=== PATIENT | female | born 1980 | race Caucasian/White ===

== ENCOUNTER 2016-10-03 22:43 | Emergency (ER) | payer SELFPAY ==
[2016-10-03 23:38] LABS: APPEARANCE CLOUDY (CLEAR); COLOR YELLOW (YELLOW)
[2016-10-03 23:39] LABS: BILIRUBIN NEGATIVE (NEGATIVE); GLUCOSE NEGATIVE (NEGATIVE); KETONE NEGATIVE (NEGATIVE); LEUKOCYTE ESTERASE TRACE (NEGATIVE); NITRITE NEGATIVE (NEGATIVE); PROTEIN NEGATIVE (NEGATIVE); UROBILINOGEN NORMAL (NORMAL)
[2016-10-03 23:40] LABS: BACTERIA FEW /hpf (NONE SEEN); EPITHELIAL CELLS 0-5 /hpf (0-5); GRANULAR CAST RARE /lpf (NONE SEEN); RED CELLS - URINE 0-5 /hpf (0-5); WHITE CELLS - URINE 0-5 /hpf (0-5)
[2016-10-04 01:02] LABS: HCG SERUM NEGATIVE (NEGATIVE)
== END 2016-10-04 00:54 | disposition home or self-care (01) ==
LOC: D.ER 22:43
PROVIDERS: Family Medicine; Physician Assistant Medical
DX: S16.1XXA Strain of muscle, fascia and tendon at neck level, initial encounter (principal); W19.XXXA Unspecified fall, initial encounter; Y93.89 Activity, other specified; Y92.89 Other specified places as the place of occurrence of the external cause; F17.200 Nicotine dependence, unspecified, uncomplicated

== ENCOUNTER 2017-01-18 10:29 | Emergency (ER) | payer SELFPAY ==
[2017-01-18 11:05] LABS: APPEARANCE HAZY (CLEAR); BILIRUBIN NEGATIVE (NEGATIVE); COLOR YELLOW (YELLOW); GLUCOSE NEGATIVE (NEGATIVE); KETONE NEGATIVE (NEGATIVE); NITRITE NEGATIVE (NEGATIVE); PROTEIN NEGATIVE (NEGATIVE); UROBILINOGEN NORMAL (NORMAL)
[2017-01-18 11:09] LABS: AMORPHOUS SEDIMENT >1+ /lpf (NONE SEEN); BACTERIA MODERATE /hpf (NONE SEEN); EPITHELIAL CELLS 0-5 /hpf (0-5); MUCUS <1+ /lpf (NONE SEEN); RED CELLS - URINE OCC /hpf (0-5); WHITE CELLS - URINE RARE /hpf (0-5)
[2017-01-18 11:26] LABS: ALBUMIN 3.5 g/dL (3.4-5.0); ALKALINE PHOSPHATASE 69 U/L (46-116); ALT (SGPT) 39 U/L (10-68); BILIRUBIN - TOTAL 0.37 mg/dL (0.2-1.3); CALC OSMOLALITY 276 mosm/kg (275-300); CALCIUM 9.4 mg/dL (8.5-10.1); CARBON DIOXIDE 26.4 mmol/L (21.0-32.0); CHLORIDE - SERUM 104 mmol/L (98-107); CREATININE - SERUM 0.6 mg/dL (0.6-1.3); GLUCOSE 115 mg/dL (74-106); MAGNESIUM - SERUM 2.1 mg/dL (1.8-2.4); POTASSIUM - SERUM 3.9 mmol/L (3.5-5.1); PROTEIN - SERUM 7.5 g/dL (6.4-8.2); SODIUM 139 mmol/L (136-145); UREA NITROGEN 7 mg/dL (7-18); eGFR NON AFRICAN AMERICAN > 90 mL/min (90-120)
[2017-01-18 11:32] LABS: UDS - AMPHET NEGATIVE QUAL (NEGATIVE); UDS - BARB NEGATIVE QUAL (NEGATIVE); UDS - BENZO NEGATIVE QUAL (NEGATIVE); UDS - COCAINE NEGATIVE QUAL (NEGATIVE); UDS - OPIATE NEGATIVE QUAL (NEGATIVE); UDS - PCP NEGATIVE QUAL (NEGATIVE); UDS - THC NEGATIVE QUAL (NEGATIVE)
[2017-01-18 11:46] LABS: BASOPHILS 0.2 % (0-2); EOSINOPHILS 1.2 % (0-7); HEMATOCRIT 39.2 % (36.0-48.0); HEMOGLOBIN 13.6 g/dL (12-16); IMMATURE GRANULOCYTES 0.2 % (0-5); LYMPHOCYTES 27.2 % (15-50); MCH 29.1 pg (26.0-34.0); MCHC 34.7 g/dL (31.0-37.0); MCV 83.8 fL (80.0-100.0); MEAN PLATELET VOLUME 9.7 fL (7.4-10.4); MONOCYTES 8.5 % (2-11); NEUTROPHILS 62.7 % (40-80); PLATELET COUNT 243 10x3/uL (130-400); RBC 4.68 10x6/uL (4.00-5.40); RDW 13.4 % (11.5-14.5); WBC 9.3 10x3/uL (4.8-10.8)
== END 2017-01-18 14:10 | disposition home or self-care (01) ==
LOC: D.ER 10:29
PROVIDERS: Family Medicine
DX: R56.9 Unspecified convulsions (principal)

== ENCOUNTER → 2018-07-31 07:59 | Outpatient (CLI) | payer MEDICAID ==
--- NOTE | ~2018-07-31 | EC ---
PATIENT:SAMUEL TANG DATE OF SERVICE: 07/31/18 SEX: F MEDICAL RECORD: [id number] DATE OF : [birth year] [facility] AGE OF PATIENT: 37 ADMISSION DATE: 07/31/18 REFERRING PHYSICIAN: INTERPRETING PHYSICIAN: KIRAN REED MD ECHOCARDIOGRAM REPORT ECHO CHARGES 4 ECHO COMPLETE Date: 07/31/18 CLINICAL DIAGNOSIS: TACHYCARDIA/ANGINA/HEBERT/ PALPITATIONS/MURMUR/ABNORMAL EKG/HTN ECHOCARDIOGRAPHIC MEASUREMENTS (adult normal given) AC root (d.<3.7cm) 2.4 cm LV Septum d (<1.2 cm> 1.2 cm Valve Excursion 1.6 cm LV Septum (systole) 1.7 cm Left Atria (s.<4.0cm> 4.1 cm LVPW d(<1.2cm) 1.2 cm RV (d.<2.3cm) 2.6 cm LVPW (sytole) 2.0 cm LV diastole(<5.6CM) 5.0 cm MV E-F(>70mm/sec) cm LV systole 2.7 cm LVOT Diameter 1.7 cm MV exc.(>10mm) cm Est.ejection fraction (50-75%) % DOPPLER: LVIT cm/sec A 61.0 cm/sec E 100 cm/sec LA cm/sec RVSP 24.0 mmHg LVOT 104 cm/sec AOP1/2T m/s Asc. Ao 143 cm/sec RVOT 64.0 cm/sec RA cm/sec PA 102 cm/sec AV Gradient Peak 8.2 mmHg AV Mean 3.9 mmHg AV Area 1.8 cm MV Gradient Peak 5.1 mmHg MV Mean 1.6 mmHg MV Area cm COMMENTS: OP - HC Ground Wirer: 1 NOHEMI ANJU Vacuum Drier Operator: 3 Dr. Smith TAPE# PACS Pericardial Effusion N DATE OF SERVICE: 07/31/2018 Adequate 2-D, color-flow and spectral Doppler, and M-mode. No LVH. LV internal dimensions are normal. Wall motion is normal. EF is greater than or equal to 55%. Aortic valve is tricuspid. No evidence of stenosis by Doppler interrogation. Left atrium is at upper limits of normal at 4.1 cm. Mitral valve shows no prolapse. Trace MR. Right side is grossly normal. Trace TR. ECHOCARDIOGRAM REPORT [id number] SAMUEL TANG TRANSINT:[id number] Voice Confirmation ID: [id number] DOCUMENT ID: [id number] KIRAN REED MD CC: [id number] DICTATION DATE: 08/01/18 1358 RECEPTIONIST/TELEPHONE OPERATOR: 08/01/18 1536 DEP CLI 07/31/18 [place] [id number] [place] [id number]
--- NOTE | 2018-08-06 14:37 | ST ---
PATIENT:SAMUEL TANG MEDICAL RECORD: [id number] SEX: F LOCATION:[facility] ORDER #: ADMISSION DATE: 07/31/18 AGE OF PATIENT: 37 REFERRING PHYSICIAN: INTERPRETING PHYSICIAN: CARLOS NOVAK MD DATE OF SERVICE: 07/31/2018 Nuclear Stress Test INDICATIONS: Angina, abnormal ECG, shortness of breath, and palpitations. She was exercised on standard Lexiscan protocol with 33 mCi of sestamibi injected at peak stress, 11 mCi used previously for rest images. FINDINGS: Gated SPECT reveals a preserved ejection fraction at 65% with good wall motioning and thickening and brightening throughout all segments. SPECT IMAGING: Cardiolite was used as myocardial perfusion agent. There is moderate reversibility throughout the anterior and apical segments. This includes the basal, mid, apical, and anterior segments as well as the apex itself. The degree of reversibility is moderate. The amount of myocardium involved is moderate to large. OVERALL IMPRESSION: 1. This is an abnormal nuclear stress test. Reversible ischemia anteriorly and apically. 2. Gated SPECT reveals preserved ejection fraction at 65%. In this patient with ongoing symptomatology, the current scan does suggest presence of hemodynamically significant coronary artery disease. We will proceed with coronary angiography as followup study. TRANSINT:[id number] Voice Confirmation ID: [id number] DOCUMENT ID: [id number] CARLOS NOVAK MD at 1437 CC: [id number] DICTATION DATE: 08/02/18 1324 FLAT DRIER: 08/03/18 0208 DEP CLI 07/31/18 [place] [id number]
== END | disposition home or self-care (01) ==
LOC: D.HCCARDIO 07:59
PROVIDERS: ATTEND Internal Medicine Interventional Cardiology
DX: I20.9 Angina pectoris, unspecified (principal)

== ENCOUNTER 2018-08-20 11:15 | Emergency (ER) | payer MEDICAID ==
[~2018-08-20] VITALS: Ht 160 cm; Wt 80.9 kg
[2018-08-20 11:16] VITALS: BP 140/104; Ht 160 cm; Wt 80.9 kg
[2018-08-20] MEDS ORDERED: LIPITOR10 MG PO (11:18)
[2018-08-20] MEDS ORDERED: TENORMIN25 MG PO (11:19)
[2018-08-20 11:48] LABS: BASOPHILS 0.2 % (0-2); EOSINOPHILS 0.1 % (0-7); HEMATOCRIT 40.2 % (36.0-48.0); HEMOGLOBIN 14.4 g/dL (12-16); IMMATURE GRANULOCYTES 0.3 % (0-5); MCHC 35.8 g/dL (31.0-37.0); MCV 80.9 fL (80.0-100.0); MEAN PLATELET VOLUME 9.3 fL (7.4-10.4); MONOCYTES 5.5 % (2-11); NEUTROPHILS 70.9 % (40-80); PLATELET COUNT 265 10x3/uL (130-400); RBC 4.97 10x6/uL (4.00-5.40); RDW 13.4 % (11.5-14.5); WBC 11.8 10x3/uL (4.8-10.8)
[2018-08-20 11:57] LABS: HCG SERUM NEGATIVE (NEGATIVE)
[2018-08-20 12:05] LABS: ALBUMIN 4.4 g/dL (3.4-5.0); ALKALINE PHOSPHATASE 82 U/L (46-116); ALT (SGPT) 58 U/L (10-68); BILIRUBIN - TOTAL 0.87 mg/dL (0.2-1.3); CALC OSMOLALITY 280 mosm/kg (275-300); CALCIUM 9.9 mg/dL (8.5-10.1); CARBON DIOXIDE 25.3 mmol/L (21.0-32.0); CHLORIDE - SERUM 104 mmol/L (98-107); CREATININE - SERUM 0.6 mg/dL (0.6-1.3); GLUCOSE 121 mg/dL (74-106); POTASSIUM - SERUM 3.9 mmol/L (3.5-5.1); PROTEIN - SERUM 8.7 g/dL (6.4-8.2); SODIUM 141 mmol/L (136-145); UREA NITROGEN 9 mg/dL (7-18); eGFR NON AFRICAN AMERICAN > 90 mL/min (90-120)
[2018-08-20 12:23] LABS: INR 1.02 (0.85-1.17); PROTIME 12.9 SECONDS (11.6-15.0)
[2018-08-20 12:24] LABS: APTT 32.4 SECONDS (22.8-39.4)
[2018-08-20 12:26] LABS: AMYLASE - SERUM 39 U/L (25-115); CKMB 3.3 U/L (0.0-3.6); CREATINE KINASE 276 UL (21-215); TROPONIN-I < 0.017 ng/mL (0.000-0.060)
[2018-08-20 12:27] LABS: LIPASE 93 U/L (73-393)
[2018-08-20] MEDS ORDERED: LEVSIN/ANASP0.125 MG PO (15:16)
[2018-08-20] MEDS ORDERED: ZANTAC300 MG PO (15:16)
[2018-08-21] MEDS ORDERED: RANITIDINE HCL150 M1 PO (11:41)
[2018-08-21] MEDS ORDERED: CLARITIN 10 MG10 MG PO (11:43)
== END 2018-08-20 16:00 | disposition home or self-care (01) ==
LOC: D.ER 11:15
PROVIDERS: Family Medicine
DX: R10.9 Unspecified abdominal pain (principal); R07.9 Chest pain, unspecified; R11.2 Nausea with vomiting, unspecified

== ENCOUNTER 2018-08-21 11:24 | Outpatient (CLI) | payer MEDICAID ==
[~2018-08-21] VITALS: Ht 160 cm; Wt 80.5 kg
--- NOTE | ~2018-08-21 | HEMODYNAMI ---
PATIENT:SAMUEL TANG MEDICAL RECORD: [id number] : 84 LOCATION:[facility] ADMISSION DATE: 08/21/18 Generatedon:08/21/201815:34 Patient name: SAMUEL TANG Patient #: [id number] SSN: : 1980 Date of study: 08/21/2018 Page: Of Hemodynamic Procedure Report Patient Data Patient Demographics Procedure consent was obtained First Name: SAMUEL Gender: Female Last Name: CLYDE : 1980 Patient #: [id number] Age: 37 year(s) Race: Unknown Additional ID: [id number] Contact details [address]: [address] [place] [address] way [address] State: [place] City: [place] Zip code: [address] Admission Admission Data Admission Date: 08/21/2018 Admission Time: 11:24 Lab Results Lab Result Date: 08/21/2018 Lab Result Time: 0:00 Biochemistry Name Units Result Min Max BUN mg/dl 11 --(-*--)-- 7 18 Creatinine mg/dl 0.7 --(*---)-- 0.6 1.3 CBC Name Units Result Min Max Hemoglobin g/dl 13.8 --(*---)-- 13.5 17.5 Procedure Procedure Types Cath Procedure Diagnostic Procedure [facility] w/Coronaries Procedure Description Procedure Date Procedure Date: 08/21/2018 Procedure Start Time: 15:11 Procedure End Time: 15:32 Procedure Staff Name Function Brennan Wilson MD Performing Physician Ko Moore RT Monitor Benita Luna RN Nurse Anam Saldana RT Scrub Procedure Data Cath Procedure Fluoroscopy Diagnostic fluoroscopy Total fluoroscopy Time: 6.7 time: 6.7 min min Diagnostic fluoroscopy Total fluoroscopy dose: dose: 1022 mGy 1022 mGy Contrast Material Contrast Material Type Amount (ml) Isovue 370 69 Entry Location Entry Primary Successful Side Size Upsize Upsize Entry Closure [place] ccessful Closure Location (Fr) 1 (Fr) 2 (Fr) Remarks Device Remarks Radial Right 6 Fr Mechanical artery Short Compression Estimated blood loss: 10 ml Diagnostic catheters Device Type Used For End Catheter Placement DIAGNOSTIC [place] 110cm 5 Procedure Fr catheter (205010) DIAGNOSTIC AR MOD 5Fr Procedure Catheter (100123Z) DIAGNOSTIC Marni 5Fr Procedure catheter (147407) DIAGNOSTIC JL 3.5 5Fr Procedure catheter ([id number]) DIAGNOSTIC JB3 4Fr Procedure catheter (867723) Procedure Complications No complications Procedure Medications Medication Administration Route Dosage 0.9% NaCl I.V. 100 ml/hr Oxygen etCO2 Nasal cannula 2 l/min Lidocaine 2% added to field 20 Heparin Flush Bag added to field 2 bags (1000units/500ml NS) Radial Cocktail added to field 1 syringe (Verapamil 2mg/Nitro 400mcg/Heparin 1500units) Versed I.V. 2 mg Fentanyl I.V. 50 mcg Fentanyl I.V. 50 mcg Lopressor I.V. 5 mg Hemodynamics Rest Heart Rate: 107 (bpm) Pressure Samples Time Site Value (mmHg) Purpose Heart Use Rate(bpm) 15:17 LV 132/46,17 Snapshot 147 15:17 AO 110/86(98) Snapshot 132 Gradients Valve Time Site Site Mean SEP/DFP Peak To Heart Use 1 2 (mmHg) (sec/min) Peak Rate (mmHg) (bpm) Aortic 15:17 LV AO 139 Snapshots Pre Cath Intra NCS Post Cath Vital Signs Time Heart Resp SPO2 etCO2 NIBP (mmHg) Rhythm Pain Sedation Rate (ipm) (%) (mmHg) Status Level (bpm) 15:03:43 125 13 97 35.6 132/80(108) ST 0 (11) 10(A) , No pain 15:07:41 120 17 97 37.1 138/86(101) ST 0 (11) 10(A) , No pain 15:11:42 122 16 97 36.4 122/84(101) ST 0 (11) 10(A) , No pain 15:15:52 131 20 98 37.1 123/66(98) ST 0 (11) 10(A) , No pain 15:19:54 124 19 97 38.7 126/71(94) ST 0 (11) 10(A) , No pain 15:23:56 109 24 97 38.6 132/78(97) ST 0 (11) 10(A) , No pain 15:28:01 102 18 97 38.6 126/79(94) ST 0 (11) 10(A) , No pain 15:32:01 101 21 100 37.1 134/84(105) ST 0 (11) 10(A) , No pain Medications Time Medication Route Dose Verified Delivered Reason Notes E ffectiveness by by 15:06:08 0.9% NaCl I.V. 100 Brennan Benita used for ml/hr Savery Jeremy procedure MD MICHAEL 15:06:14 Oxygen etCO2 2 l/min Brennan Benita used for Nasal Savery Jeremy procedure cannula MD MICHAEL 15:06:19 Lidocaine 2% added 20ml Brennan Amin for local to vial [facility] anesthetic field MD ORDONEZ 15:06:24 Heparin Flush added 2 bags Brennan Amin used for Bag to [facility] procedure (1000units/500ml field MD ORDONEZ NS) 15:06:31 Radial Cocktail added 1 Brennan Amin used for (Verapamil to syringe [facility] procedure 2mg/Nitro field MD ORDONEZ 400mcg/Heparin 1500units) 15:10:52 Fentanyl I.V. 50 mcg Brennan Sutherlandyla for KatieMaximino Luna sedation MD MICHAEL 15:11:41 Versed I.V. 2 mg Brennan Benita for Savery Jeremy sedation MD MICHAEL 15:19:35 Fentanyl I.V. 50 mcg Brennan Benita for Savery Jeremy sedation MD MICHAEL 15:19:40 Lopressor I.V. 5 mg Brennan Benita Per Savery Jeremy physician MD MICHAELdebeaker Log Time Note 14:40:45 Benita Luna RN sent for patient. Start room use. 14:51:46 Time tracking: Regular hours (M-F 7:00 - 5:00) 14:51:50 Plan of Care:Hemodynamics will remain stable., Cardiac rhythm will remain stable., Comfort level will be maintained., Respiratory function will remain adequate., Patient/ family verbilizes understanding of procedure., Procedure tolerated without complication., Recovers from procedure without complications.. 14:53:30 Patient received from Pre/Post Procedure Room to [facility] 2 Alert and oriented. Tansferred to table in Supine position. 14:53:32 Warm blankets applied, and brendan hugger turned on for patient comfort. 14:53:32 Correct patient and procedure confirmed by team. 14:53:33 Signed procedure consent form obtained from patient. 14:53:34 ECG and BP/O2 sat monitors applied to patient. 14:57:20 Lab Result : BUN 11 mg/dl 14:57:20 Lab Result : Hemoglobin 13.8 g/dl 14:57:20 Lab Result : Creatinine 0.7 mg/dl 15:02:51 Vital chart was started 15:06:08 0.9% NaCl 100 ml/hr I.V. was administered by Benita Luna RN; used for procedure; 15:06:14 Oxygen 2 l/min etCO2 Nasal cannula was administered by Benita Luna RN; used for procedure; 15:06:19 Lidocaine 2% 20ml vial added to field was administered by Brennan Wilson MD; for local anesthetic; 15:06:24 Heparin Flush Bag (1000units/500ml NS) 2 bags added to field was administered by Brennan Wilson MD; used for procedure; 15:06:29 Baseline sample Acquired. 15:06:31 Radial Cocktail (Verapamil 2mg/Nitro 400mcg/Heparin 1500units) 1 syringe added to field was administered by Brennan Wilson MD; used for procedure; 15:06:33 Rhythm: sinus tachycardia 15:06:34 Full Disclosure recording started 15:06:44 H&P Date Dictated: 07/31/2018 Within 30 days and on chart., H&P Addendum completed by physician on day of procedure. (MUST COMPLETE FOR ALL OUTPATIENTS). 15:06:45 Pre-procedure instructions explained to patient. 15:06:46 Pre-op teaching completed and patient verbalized understanding. 15:06:47 Family in patients room. 15:06:48 Patient NPO since Midnight. 15:06:50 Is the patient allergic to Iodine/contrast media? No. 15:06:52 Is the patient allergic to Iodine/contrast media? No. 15:06:55 Is patient on blood thinner?No 15:07:02 Patient diabetic? No. 15:09:00 HCG/Urine : completed and on chart, negative 15:09:03 Previous problem with sedation/anesthesia? No ? 15:09:04 Snore? Yes 15:09:05 Sleep apnea? No 15:09:06 Deviated septum? No 15:09:07 Opens mouth fully? Yes 15:09:08 Sticks out tongue? Yes 15:09:09 Airway obstruction? No ? 15:09:13 Dentures? Yes out 15:09:17 Pre procedure: right dorsailis pedis pulse 1+ Palpable, but thready & weak; easily obliterated 15:09:19 Modified Satish's test Ulnar < 7 seconds 15:09:21 Patient pain scale 0/10 ?. 15:09:27 IV patent on arrival in left forearm with 0.9% NaCl at [facility]. 15:09:28 Lab results completed and on chart. 15:09:31 Right Radial & Right Groin area was prepped with chlora-prep and draped in sterile fashion 15:09:32 Alarms reviewed by R. N. 15:09:33 Sharps counted by scrub and verified by R.N. 15:09:37 Use device set Radial Dx or PCI 15:09:39 Tegaderm 4 x 4 (1626W) opened to sterile field. 15:09:39 ACIST Manifold (71669) opened to sterile field. 15:09:40 ACIST Hand Control (38086) opened to sterile field. 15:09:41 ACIST Syringe (30620) opened to sterile field. 15:09:41 Medline Cath Pack ([id number]) opened to sterile field. 15:09:42 Bag Decanter (2002S) opened to sterile field. 15:09:42 DIAGNOSTIC WIRE .035 260cm J wire (042636) opened to sterile field. 15:09:42 MBrace Wrist Support (613640321) opened to sterile field. 15:09:44 SHEATH 6FR Slender (77-1060) opened to sterile field. 15:: --------ALL STOP TIME OUT------ 15:: Final Timeout: patient, procedure, and site verified with staff and physician. All members of the team are in agreement. 15:10:13 Right Radial & Right Groin site verified by team. 15:10:17 Maximum allowable Isovue 370 dose 300ml. Physician notified. (300ml for normal creatinines. For patients with creatinine of 1.7 or higher multiply weight(kg) x 5 divided by creatinine.) 15:10:20 Fire Safety Assessment: A--An alcohol-based skin anteseptic being used preoperatively., C--Open oxygen or nitrous oxide is being used., D--An ESU, laser, or fiber-optic light is being used. 15:10:23 Physical assessment completed. ASA score P 2 - A patient with mild systemic disease as per Brennan Wilson MD. 15:10:25 Sedation plan: IV Moderate Sedation Medication:Versed, Fentanyl 15:10:52 Fentanyl 50 mcg I.V. was administered by Benita Luna RN; for sedation; 15:11:12 Procedure started. 15:11:16 Local anesthetic to right radial artery with Lidocaine 2% by Brennan Wilosn MD.INITIAL ACCESS ONLY 15:11:41 Versed 2 mg I.V. was administered by Benita Luna RN; for sedation; 15:13:44 A 6 Fr Short sheath was inserted into the Right Radial artery 15:13:51 A DIAGNOSTIC [place] 110cm 5 Fr catheter (950835) was advanced over the wire and used for Procedure. 15:17:19 LV angiography performed. 15:17:20 LV gram done using CAVAZOS 15:17:26 EF : 55 % 15:17:33 LV hemodynamics recorded. 15:17:36 Injector settings: Ml/sec: 7, Volume: 15, 15:19:17 Catheter removed. unable to cannulate vessel. 15:19:35 Fentanyl 50 mcg I.V. was administered by Benita Luna RN; for sedation; 15:19:40 Lopressor 5 mg I.V. was administered by Benita Luna RN; Per physician; 15:20:31 A DIAGNOSTIC AR MOD 5Fr Catheter (431870U) was advanced over the wire and used for Procedure. 15:21:22 RCA angiography performed. 15:21:42 Catheter exchanged over wire. 15:21:48 A DIAGNOSTIC Marni 5Fr catheter (080971) was advanced over the wire and used for Procedure. 15:23:48 Catheter removed. unable to cannulate vessel. 15:24:30 A DIAGNOSTIC JL 3.5 5Fr catheter (531336U) was advanced over the wire and used for Procedure. 15:26:48 Catheter removed. unable to cannulate vessel. 15:26:58 A DIAGNOSTIC JB3 4Fr catheter (694829) was advanced over the wire and used for Procedure. 15:29:39 RCA angiography performed. 15:30:04 Catheter removed. 15:30:05 TR BAND Standard ([id number]) opened to sterile field. 15:30:17 Sheath removed intact; hemostasis achieved with Mechanical Compression to the Right Radial artery. 15:30:30 Procedure ended.(Physican Out) 15:30:53 Fluoroscopy time 06.70 minutes. 15:30:59 Flurop Dose total: 1022 15:30:59 Fluoroscopy dose: 1022 mGy 15:31:04 Contrast amount:Isovue 370 69ml. 15:31:05 Sharps counted by scrub and verified by R.N. 15:31:07 Insertion/operative site no bleeding no hematoma. 15:31:10 TR band inflated with 12cc of air. 15:31:12 Post Procedure Pulses reassessed and unchanged 15:31:15 Post-procedure physical assessment completed. ASA score P 2 - A patient with mild systemic disease as per Brennan Wilson MD. 15:31:23 Post procedure rhythm: sinus tachycardia 15:31:25 Estimated blood loss: 10 ml 15:31:27 Post procedure instruction explained to patient.Patient verbalizes understanding. 15:31:27 Patient needs reinforcement of post procedure teaching. 15:31:36 Procedure and supply charges have been captured, reviewed, submitted and are correct. 15:31:39 Procedure Complication : No complications 15:32:46 Vital chart was stopped 15:32:48 See physician's report for complete and final results. 15:32:50 Report given to Pre/Post Procedure Room. 15:32:53 Patient transfered to Pre/Post Procedure Room with Stretcher. 15:32:56 Procedure ended. 15:32:56 Full Disclosure recording stopped 15:34:38 End room use (Document Last) Device Usage Item Name Manufacture Quantity Catalog Hospital Part Current Minimal Lot# / Number Charge Number Stock Stock Serial# Code Tegaderm 4 3M 1 1626W [id number] 661457 921895 5 x 4 (1626W) ACIST Acist 1 83408 815700 400803 958913 5 Manifold Medical (40727) Systems Inc ACIST Hand Acist 1 71981 380098 343990 095472 5 Control Medical (45599) Systems Inc ACIST Acist 1 28048 654910 923204 659939 20 Syringe Medical (68957) Systems Inc Medline Medline 1 [id number] 374037 39141 655176 5 Cath Pack ([id number]) Bag Microtek 1 2001S 164796 86562 869406 5 Decanter Medical Inc. () DIAGNOSTIC [place] 1 193367 712216 335129 931033 30 WIRE .035 260cm J wire (011154) MBrace Advanced 1 140-0250-00 961049 00395 540634 5 Wrist Vascular Support Dynamics ([id number]) SHEATH 6FR Terumo 1 [id number] 342513 862099 485690 5 Slender (80-1060) DIAGNOSTIC Terumo 1 40-5013 169784 082794 657125 5 [place] 110cm 5 Fr catheter (099366) DIAGNOSTIC Cardinal 1 446234O 451255 813605 726510 15 AR MOD 5Fr Health Catheter (344658Q) DIAGNOSTIC Terumo 1 40-5022 546347 230060 048897 5 Marni 5Fr catheter (362958) DIAGNOSTIC Cardinal 1 [id number] 928825 837888 608933 5 JL 3.5 5Fr Health catheter (045537E) DIAGNOSTIC Cardinal 1 532-438 372818 470312 570023 5 JB3 4Fr Health catheter (012161) TR BAND Terumo 1 [id number] 399432 254439 971703 40 Standard ([id number]) Signature Audit [place] Stage Time Signature Unsigned Intra-Procedure 08/21/2018 Ko Moore 3:34:55 PM RT(R) Signatures Monitor : Ko Moore RT Signature : Date : Time : [facility] [address] [place] [address]
[~2018-08-21 11:24] MED LIST: LEVSIN/ANASP0.125 MG PO; LIPITOR10 MG PO; TENORMIN25 MG PO; ZANTAC300 MG PO
[2018-08-21] MEDS ORDERED: RANITIDINE HCL150 M1 PO (11:41)
[2018-08-21] MEDS ORDERED: CLARITIN 10 MG10 MG PO (11:43)
[2018-08-21 12:00] VITALS: BP 116/89; Ht 160 cm; Wt 80.5 kg
[2018-08-21 12:36] LABS: CALC OSMOLALITY 287 mosm/kg (275-300); CALCIUM 9.3 mg/dL (8.5-10.1); CARBON DIOXIDE 26.8 mmol/L (21.0-32.0); CHLORIDE - SERUM 107 mmol/L (98-107); CREATININE - SERUM 0.7 mg/dL (0.6-1.3); GLUCOSE 103 mg/dL (74-106); POTASSIUM - SERUM 3.6 mmol/L (3.5-5.1); SODIUM 145 mmol/L (136-145); UREA NITROGEN 11 mg/dL (7-18); eGFR NON AFRICAN AMERICAN > 90 mL/min (90-120)
[2018-08-21 12:41] LABS: BASOPHILS 0.2 % (0-2); HEMATOCRIT 39.5 % (36.0-48.0); HEMOGLOBIN 13.8 g/dL (12-16); IMMATURE GRANULOCYTES 0.3 % (0-5); LYMPHOCYTES 26.9 % (15-50); MCH 28.6 pg (26.0-34.0); MCHC 34.9 g/dL (31.0-37.0); MEAN PLATELET VOLUME 9.4 fL (7.4-10.4); MONOCYTES 7.9 % (2-11); NEUTROPHILS 63.7 % (40-80); PLATELET COUNT 246 10x3/uL (130-400); RBC 4.82 10x6/uL (4.00-5.40); RDW 13.8 % (11.5-14.5); WBC 9.4 10x3/uL (4.8-10.8)
--- NOTE | 2018-08-21 13:47 | NUR ---
PT ARRIVED BY STRETCHER. PLACED ON MONITORS. PT IN SINUS RHYTHM RATE 61. DENIES PAIN/NAUSEA AT THIS TIME.
[2018-08-21 13:48] LABS: HCG SERUM NEGATIVE (NEGATIVE)
--- NOTE | 2018-08-21 14:02 | NUR ---
PT RESTING COMFORTABLY. VSS. PT IN SR. RATE 63. NO NEEDS AT THIS TIME.
--- NOTE | 2018-08-21 14:30 | NUR ---
PT RESTING COMFORTABLY. STILL IN SINUS RHYTHM. LEFT ARM PIV D/C'D WITH CATH TIP INTACT. TOLERATED WELL. PT INSTRUCTED TO GET UP AND DRESSED.
--- NOTE | 2018-08-21 14:40 | NUR ---
DISCUSSED DISCHARGE INSTRUCTIONS WITH PT AND PT'S FAMILY. THEY VOICED UNDERSTANDING.
--- NOTE | 2018-08-21 14:45 | NUR ---
PT TAKEN OUT TO VEHILCE BY WHEELCHAIR. NO S/S OF DISTRESS NOTED. ALL BELONGINGS AND PAPERWORK IN HAND.
--- NOTE | 2018-08-21 15:55 | NUR ---
2L NC, NO RESP DISTRESS. RIGHT WRIST TR BAND CDI, NO BLEEDING OR HEMAOTMA NOTED. NO C/O PAIN OR NAUSEA. VSS. FAMILY AT BEDSIDE, CALL LIGHT WITHIN REACH.
--- NOTE | 2018-08-21 16:40 | NUR ---
3CC OF AIR REMOVED FROM TR BAND WITH NO BLEEDING NOTED. SIPPING ON DRINK AND EATING SANDWICH WITH NO C/O NAUSEA. VSS. WILL CONTINUE TO MONITOR.
--- NOTE | 2018-08-21 16:55 | NUR ---
3CC OF AIR REMOVED FROM TR BAND WITH NO BLEEDING NOTED.
--- NOTE | 2018-08-21 17:10 | NUR ---
LEFT PIV D/C'D WITH CATHETER INTACT, BAND AID TO SITE. UP TO BEDSIDE TO GET DRESSED. AMBULATED TO RESTROOM.
--- NOTE | 2018-08-21 17:20 | NUR ---
REMAINING AIR REMOVED FROM TR BAND WITH NO BLEEDING NOTED. DRESSING PLACED TO SITE. DISCHARGE INSTRUCTIONS ALONG WITH ZYBETTA PRESCRIPTION GIVEN TO PT AND FAMILY, BOTH VERBALIZED UNDERSTANDING.
--- NOTE | 2018-08-21 17:35 | NUR ---
TAKEN OUT VIA WHEELCHAIR BY CATH WEB DEVELOPMENT INSTRUCTOR. LEFT FACILITY WITH FAMILY AND ALL PERSONAL BELONGINGS.
--- NOTE | 2018-08-23 09:47 | OP ---
PATIENT NAME: SAMUEL TANG MEDICAL RECORD: [id number] :84 LOCATION:[facility] ADMISSION DATE: SURGEON: KIRAN REED MD DATE OF OPERATION: 08/21/2018 PROCEDURE: Left heart catheterization, selective coronary angiography, right radial approach. CATHETERS: Radial sheath, AR. Multiple catheters were used to engage the left system, finally marcelle burns was able to engage. FINDINGS: Left ventriculography in 30-degree CAVAZOS view: Normal wall motion. Normal systolic function. CORONARY ANATOMY: LEFT MAIN: Left main is free of disease. LAD: Free of disease in the diagonal system. CIRCUMFLEX: Left dominant system, free of disease. RIGHT CORONARY ARTERY: Rudimentary and free of disease. IMPRESSION: Normal LV function. Normal coronary angiogram. TRANSINT:[id number] Voice Confirmation ID: [id number] DOCUMENT ID: [id number] KIRAN REED MD at 0947 CC: [id number] DICTATION DATE: 08/21/18 1537 COMPLIANCE QUALITY PERFORMANCE ANALYST: 08/21/18 1601 DEP CLI 08/21/18 [facility] [address] [place] [address]
== END 2018-08-21 17:35 | disposition home or self-care (01) ==
LOC: D.CATH 11:24
PROVIDERS: ATTEND Internal Medicine Interventional Cardiology
DX: R94.30 Abnormal result of cardiovascular function study, unspecified (principal); R06.09 Other forms of dyspnea; Z01.812 Encounter for preprocedural laboratory examination

== ENCOUNTER 2018-08-24 15:26 | Emergency (ER) | payer MEDICAID ==
[~2018-08-24 15:26] MED LIST changes: +CLARITIN 10 MG10 MG PO; +RANITIDINE HCL150 M1 PO
[2018-08-24 15:28] VITALS: Ht 160 cm
[2018-08-24 16:04] LABS: BASOPHILS 0.4 % (0-2); EOSINOPHILS 0.8 % (0-7); HEMATOCRIT 41.5 % (36.0-48.0); HEMOGLOBIN 14.9 g/dL (12-16); IMMATURE GRANULOCYTES 0.4 % (0-5); LYMPHOCYTES 21.6 % (15-50); MCHC 35.9 g/dL (31.0-37.0); MCV 80.9 fL (80.0-100.0); MEAN PLATELET VOLUME 9.4 fL (7.4-10.4); NEUTROPHILS 70.8 % (40-80); PLATELET COUNT 248 10x3/uL (130-400); RBC 5.13 10x6/uL (4.00-5.40); RDW 13.4 % (11.5-14.5); WBC 10.1 10x3/uL (4.8-10.8)
[2018-08-24 16:22] LABS: ALBUMIN 4.4 g/dL (3.4-5.0); ALKALINE PHOSPHATASE 74 U/L (46-116); ALT (SGPT) 61 U/L (10-68); BILIRUBIN - TOTAL 0.86 mg/dL (0.2-1.3); CALC OSMOLALITY 280 mosm/kg (275-300); CALCIUM 10.3 mg/dL (8.5-10.1); CARBON DIOXIDE 28.2 mmol/L (21.0-32.0); CHLORIDE - SERUM 103 mmol/L (98-107); CREATININE - SERUM 0.6 mg/dL (0.6-1.3); GLUCOSE 117 mg/dL (74-106); POTASSIUM - SERUM 4.3 mmol/L (3.5-5.1); PROTEIN - SERUM 8.6 g/dL (6.4-8.2); SODIUM 141 mmol/L (136-145); UREA NITROGEN 9 mg/dL (7-18); eGFR NON AFRICAN AMERICAN > 90 mL/min (90-120)
[2018-08-24 16:27] LABS: APTT 31.5 SECONDS (22.8-39.4); INR 1.03 (0.85-1.17)
[2018-08-24 16:32] LABS: CKMB 1.8 U/L (0.0-3.6); CREATINE KINASE 112 UL (21-215); MAGNESIUM - SERUM 2.2 mg/dL (1.8-2.4); THYROID STIMULATING HORMONE 2.62 uIU/mL (0.36-3.74); TROPONIN-I < 0.017 ng/mL (0.000-0.060)
[2018-08-24 16:57] LABS: UDS - AMPHET NEGATIVE QUAL (NEGATIVE); UDS - BARB NEGATIVE QUAL (NEGATIVE); UDS - BENZO NEGATIVE QUAL (NEGATIVE); UDS - COCAINE NEGATIVE QUAL (NEGATIVE); UDS - OPIATE NEGATIVE QUAL (NEGATIVE); UDS - PCP NEGATIVE QUAL (NEGATIVE); UDS - THC NEGATIVE QUAL (NEGATIVE)
[2018-08-24 18:05] LABS: APPEARANCE CLEAR (CLEAR); BILIRUBIN NEGATIVE (NEGATIVE); COLOR STRAW (YELLOW); GLUCOSE NEGATIVE (NEGATIVE); KETONE NEGATIVE (NEGATIVE); NITRITE NEGATIVE (NEGATIVE); PROTEIN NEGATIVE (NEGATIVE); UROBILINOGEN NORMAL (NORMAL)
[2018-08-24 18:07] LABS: BACTERIA FEW /hpf (NONE SEEN); EPITHELIAL CELLS NSEEN /hpf (0-5); RED CELLS - URINE 0-5 /hpf (0-5); WHITE CELLS - URINE NSEEN /hpf (0-5)
[2018-08-24] MEDS ORDERED: LEXAPRO5 MG PO (18:26)
[2018-08-24] MEDS ORDERED: ZOFRAN ODT4 MG/UDTAB PO (18:32)
[2018-08-24 20:03] VITALS: BP 121/74
== END 2018-08-24 19:58 | disposition home or self-care (01) ==
LOC: D.ER 15:26
PROVIDERS: Emergency Medicine
DX: R00.0 Tachycardia, unspecified (principal); F41.9 Anxiety disorder, unspecified; F32.9 Major depressive disorder, single episode, unspecified

== ENCOUNTER 2018-08-27 12:12 | Emergency (ER) | payer MEDICAID ==
[~2018-08-27] VITALS: Ht 160 cm; Wt 80.9 kg
[~2018-08-27 12:12] MED LIST changes: +LEXAPRO5 MG PO; +ZOFRAN ODT4 MG/UDTAB PO
[2018-08-27 12:15] VITALS: Ht 160 cm; Wt 80.9 kg
[2018-08-27 12:54] LABS: BASOPHILS 0.2 % (0-2); EOSINOPHILS 0.1 % (0-7); HEMATOCRIT 41.9 % (36.0-48.0); HEMOGLOBIN 15.1 g/dL (12-16); IMMATURE GRANULOCYTES 0.3 % (0-5); LYMPHOCYTES 16.2 % (15-50); MCH 29.2 pg (26.0-34.0); MCV 80.9 fL (80.0-100.0); MEAN PLATELET VOLUME 9.4 fL (7.4-10.4); MONOCYTES 4.9 % (2-11); NEUTROPHILS 78.3 % (40-80); RBC 5.18 10x6/uL (4.00-5.40); RDW 13.5 % (11.5-14.5); WBC 15.8 10x3/uL (4.8-10.8)
[2018-08-27 12:58] LABS: PLATELET COUNT 306 10x3/uL (130-400)
[2018-08-27 13:05] LABS: HCG SERUM NEGATIVE (NEGATIVE)
[2018-08-27 13:08] LABS: ALBUMIN 4.9 g/dL (3.4-5.0); ALKALINE PHOSPHATASE 76 U/L (46-116); ALT (SGPT) 52 U/L (10-68); BILIRUBIN - TOTAL 1.36 mg/dL (0.2-1.3); CALC OSMOLALITY 278 mosm/kg (275-300); CALCIUM 10.2 mg/dL (8.5-10.1); CARBON DIOXIDE 26.5 mmol/L (21.0-32.0); CHLORIDE - SERUM 101 mmol/L (98-107); CREATININE - SERUM 0.8 mg/dL (0.6-1.3); GLUCOSE 140 mg/dL (74-106); MAGNESIUM - SERUM 2.6 mg/dL (1.8-2.4); POTASSIUM - SERUM 3.8 mmol/L (3.5-5.1); PROTEIN - SERUM 9.5 g/dL (6.4-8.2); SODIUM 139 mmol/L (136-145); UREA NITROGEN 9 mg/dL (7-18); eGFR NON AFRICAN AMERICAN 86 mL/min (90-120)
[2018-08-27 13:15] LABS: UDS - AMPHET NEGATIVE QUAL (NEGATIVE); UDS - BARB NEGATIVE QUAL (NEGATIVE); UDS - BENZO POSITIVE QUAL (NEGATIVE); UDS - COCAINE NEGATIVE QUAL (NEGATIVE); UDS - OPIATE NEGATIVE QUAL (NEGATIVE); UDS - PCP NEGATIVE QUAL (NEGATIVE); UDS - THC NEGATIVE QUAL (NEGATIVE)
[2018-08-27 13:24] LABS: APPEARANCE SL CLDY (CLEAR); BILIRUBIN NEGATIVE (NEGATIVE); COLOR YELLOW (YELLOW); GLUCOSE NEGATIVE (NEGATIVE); KETONE MODERATE mg/dL (NEGATIVE); NITRITE NEGATIVE (NEGATIVE); PROTEIN TRACE mg/dL (NEGATIVE); RED CELLS - URINE 0-5 /hpf (0-5); WHITE CELLS - URINE 0-5 /hpf (0-5)
[2018-08-27 13:25] LABS: BACTERIA MANY /hpf (NONE SEEN); EPITHELIAL CELLS 0-5 /hpf (0-5); MUCUS <1+ /lpf (NONE SEEN)
--- NOTE | 2018-08-27 13:35 | NUR ---
DR. OCHOA NOTIFIED AND 1:1 SITTER OBSERVATION ORDERED. SITTER AT BEDSIDE. NOTIFIED CHARGE NURSE AND ATTENDING IN REGARDS TO ASSESSMENT FINDINGS. RESOURCES GIVEN TO PT AND SAFETY PLAN INITIATED.
[2018-08-27 21:15] VITALS: BP 135/73
== END 2018-08-27 21:16 ==
LOC: D.ER 12:12
PROVIDERS: Family Medicine
DX: F32.9 Major depressive disorder, single episode, unspecified (principal); R45.851 Suicidal ideations; G40.909 Epilepsy, unspecified, not intractable, without status epilepticus

== ENCOUNTER 2019-04-24 16:43 | Emergency (ER) | payer MEDICAID ==
[~2019-04-24] VITALS: Ht 160 cm; Wt 81.8 kg
[2019-04-24 16:45] VITALS: Ht 160 cm; Wt 81.8 kg
[2019-04-24 17:01] LABS: BASOPHILS 0.3 % (0-2); EOSINOPHILS 1.3 % (0-7); HEMATOCRIT 40.7 % (36.0-48.0); HEMOGLOBIN 14.1 g/dL (12-16); IMMATURE GRANULOCYTES 0.5 % (0-5); LYMPHOCYTES 28.3 % (15-50); MCH 29.4 pg (26.0-34.0); MCHC 34.6 g/dL (31.0-37.0); MCV 84.8 fL (80.0-100.0); MEAN PLATELET VOLUME 9.1 fL (7.4-10.4); MONOCYTES 7.3 % (2-11); NEUTROPHILS 62.3 % (40-80); PLATELET COUNT 265 10x3/uL (130-400); RDW 12.7 % (11.5-14.5); WBC 10.9 10x3/uL (4.8-10.8)
[2019-04-24 17:12] LABS: CALC OSMOLALITY 281 mosm/kg (275-300); CALCIUM 9.5 mg/dL (8.5-10.1); CARBON DIOXIDE 27.5 mmol/L (21.0-32.0); CHLORIDE - SERUM 105 mmol/L (98-107); CREATININE - SERUM 0.8 mg/dL (0.6-1.3); GLUCOSE 101 mg/dL (74-106); SODIUM 142 mmol/L (136-145); UREA NITROGEN 9 mg/dL (7-18); eGFR NON AFRICAN AMERICAN 86 mL/min (90-120)
[2019-04-24 17:20] LABS: ALBUMIN 3.9 g/dL (3.4-5.0); ALKALINE PHOSPHATASE 82 U/L (30-120); ALT (SGPT) 48 U/L (10-68); BILIRUBIN - TOTAL 0.39 mg/dL (0.2-1.3); MAGNESIUM - SERUM 2.2 mg/dL (1.8-2.4); PROTEIN - SERUM 8.2 g/dL (6.4-8.2)
[2019-04-24 18:10] LABS: APPEARANCE CLEAR (CLEAR); BILIRUBIN NEGATIVE (NEGATIVE); COLOR YELLOW (YELLOW); GLUCOSE NEGATIVE (NEGATIVE); KETONE NEGATIVE (NEGATIVE); NITRITE NEGATIVE (NEGATIVE); PROTEIN NEGATIVE (NEGATIVE); SPECIFIC GRAVITY 1.015 (1.005-1.020); UROBILINOGEN NORMAL (NORMAL)
[2019-04-24 18:11] LABS: HCG URINE NEGATIVE (NEGATIVE)
[2019-04-24 18:39] LABS: UDS - AMPHET NEGATIVE QUAL (NEGATIVE); UDS - BARB NEGATIVE QUAL (NEGATIVE); UDS - BENZO NEGATIVE QUAL (NEGATIVE); UDS - COCAINE NEGATIVE QUAL (NEGATIVE); UDS - OPIATE NEGATIVE QUAL (NEGATIVE); UDS - PCP NEGATIVE QUAL (NEGATIVE); UDS - THC NEGATIVE QUAL (NEGATIVE)
[2019-04-24 18:49] VITALS: BP 123/78
== END 2019-04-24 18:50 | disposition home or self-care (01) ==
LOC: D.ER 16:43
PROVIDERS: Family Medicine
DX: R56.9 Unspecified convulsions (principal)

== ENCOUNTER → 2019-04-30 08:41 | Outpatient (CLI) | payer MEDICAID ==
[2019-04-24 16:45] VITALS: BMI 31.9
== END | disposition home or self-care (01) ==
LOC: D.MRI 08:41
PROVIDERS: ATTEND Student in an Organized Health Care Education/Training Program
DX: E22.1 Hyperprolactinemia (principal)